=== PATIENT | female | born 1975 | race Caucasian/White ===

== ENCOUNTER → 2025-03-28 | Emergency (ER) | payer OTHER ==
[~2025-03-28] VITALS: Ht 170.2 cm; Wt 77.3 kg
[~2025-03-28] MED LIST: HYDR-3965 PO
[2025-03-28 18:04] VITALS: BP 160/109; PULSE 115; RESP 17; TEMP 97.3; O2SAT 100
[2025-03-28 19:04] LABS: MEAN PLATELET VOLUME 7.6 FL (7.4-10.4); RED CELL DISTRIBUTION WIDTH 14.4 % (11.5-14.5)
[2025-03-28 19:25] LABS: CREATININE 0.74 MG/DL (0.40-0.90); TOTAL CARBON DIOXIDE 32.2 MMOL/L (24-32); eCRCL 87 ML/MIN; eGFR 83 ML/MIN
[2025-03-28 19:53] LABS: LEUKOCYTE ESTERASE ,URINE NEGATIVE (Neg); NITRITES, URINE NEGATIVE (Neg); OCCULT BLOOD,URINE SMALL (Neg)
[2025-03-28 19:54] LABS: UA COLLECTION TYPE CLN CATCH MIDSTREAM
[2025-03-28 19:58] LABS: SQUAMOUS EPITHELIAL CELL,UR FEW /LPF (FEW)
--- NOTE | 2025-03-28 22:35 | Physician Documentation ---
History of Present Illness Chief Complaint: Abdominal Pain w/vomiting Stated Complaint: ABD PAIN Primary Medical Doctor: Mick Ramey [facility] HPI This is a 50-year-old female who presents with three days of nausea, vomiting, and abdominal pain described as bloating. Patient reports black stools however also reports black stools began after taking Pepto-Bismol. Patient reports no other acute symptoms or concerns. Medication Reconciliation Allergies: Coded Allergies: No Known Allergies (Unverified , 08/22/09) Scheduled PRN Hydrocodone Bit/Acetaminophen 5/325 MG ([place] 5/325 MG), 1 TAB PO Q4H PRN for moderate or severe pain Past Medical History Past Medical History: MRSA Abscess Past Surgical History: appendectomy Alcohol Use: Occasionally Drug Use: marijuana, methamphetamine Lives with: Family Lives In: Home Occupation: employed Review of Systems ROS As stated above in the HPI, otherwise all systems are reviewed and negative. Physical Exam Vital Signs: Temperature: 97.3, Source: Temporal, Heart Rate: 115, Respiratory Rate: 17, BP: 160/109, Pulse Oximetry: 100, Weight: 77.270 Oxygen Flow Rate: 0 Physical Exam VITALS: Reviewed and as above. GENERAL: Alert, nontoxic appearing, no apparent distress. RESPIRATORY: No increased work of breathing, no respiratory distress, speaking in full clear sentences Progress Results/Orders Results/Orders Completed Orders - SRIDEVI HUNTLEY [employer] Cbc/Diff (03/28/25 18:10) BMP (03/28/25 18:10) Lipase (03/28/25 18:10) CMP (03/28/25 18:10) Ua W/Microscopic, Cult If Ind (03/28/25 18:05) Vital Signs 03/28/25 18:04 Temp 97.3 Pulse 115 Resp 17 B/P (MAP) 160/109 Pulse Ox 100 O2 Flow Rate 0 Laboratory Tests Test 03/28/25 18:05 03/28/25 18:34 Urine Specimen Description Cln catch midstream Urine Color Yellow Urine Clarity Clear Urine pH 6.0 Urine Specific [place] 1.025 Urine Protein Negative Urine Glucose (UA) Negative Urine Ketones Trace H Urine Occult Blood Small Urine Nitrite Negative Urine Bilirubin Small Urine Urobilinogen 0.2 Urine Leukocyte Esterase Negative Urine RBC 0-2 Urine WBC 0-4 Urine Squamous Epithelial Cells Few Urine Bacteria Few Urine Culture Indicated Not ind Volume Urine Centrifuged 10 ml Urine Comment White Blood Count 5.2 Red Blood Count 4.44 Hemoglobin 14.1 Hematocrit 41.5 Mean Corpuscular Volume 93.4 Mean Corpuscular Hemoglobin 31.8 H Mean Corpuscular Hemoglobin Concent 34.0 Red Cell Distribution Width 14.4 Platelet Count 238 Mean Platelet Volume 7.6 Neutrophils (%) (Auto) 61.6 Lymphocytes (%) (Auto) 27.0 Monocytes (%) (Auto) 9.0 Eosinophils (%) (Auto) 1.6 Basophils (%) (Auto) 0.8 Neutrophils # (Auto) 3.2 Lymphocytes # (Auto) 1.4 Monocytes # (Auto) 0.5 Eosinophils # (Auto) 0.1 Basophils # (Auto) 0.0 CBC Comment Sodium Level 143 Potassium Level 3.8 Chloride Level 102 Carbon Dioxide Level 32.2 H Anion Gap 9 Blood Urea Nitrogen 18 Creatinine 0.74 Estimated GFR/1.73 m2 83 BUN/Creatinine Ratio 24.3 H Glucose Level 98 Calcium Level 9.0 Total Bilirubin 0.8 Aspartate Amino Transf (AST/SGOT) 17 Alanine Aminotransferase (ALT/SGPT) 26 Alkaline Phosphatase 116 Total Protein 7.5 Albumin 4.0 Globulin 3.5 Albumin/Globulin Ratio 1.1 Lipase 42 Chemistry Comments Medical Decision Making Findings This otherwise well appearing 50-year-old female presented with three days of nausea, vomiting, and abdominal pain described as generalized bloating. Patient did report history of black stools however reported black stools began after taking Pepto-Bismol. Patient is hemodynamically stable. MSE performed in triage and patient returned to ED lobby by nursing staff to await available ED room, lab work initiated. Patient appears to have eloped from lobby. Differential Dx:Considerations: Include: AAA, Aortic dissection, Appendicitis, Bowel obstruction, Cholangitis, Cholelithasis, Constipation, Diverticular disease, Esophageal rupture, Esophagitis, Gastritis/PUD, Gastroenteritis, GI hemorrhage, Hernia, Inflammatory BD, Ischemic bowel, Ovarian cyst/torsion, Pancreatitis, PID, Trauma, intraabdominal, Urinary obstruction, Urinary tract infection, Urolithiasis Departure Disposition: LEFT AWOL/ELOPED Impression: Primary Impression: Abdominal pain Qualified Codes: R10.84 - Generalized abdominal pain Referrals: NO PRIMARY CARE PROVIDER (PCP) Signature Scribe Signature: No scribe Attestation: The note accurately reflects work and decisions made by me.CYNDY Altamirano 03/28/25 22:34 SRIDEVI HUNTLEY Mar 28, 2025 22:34
== END | disposition home or self-care (01) ==
LOC: ER 17:56
DX: R10.9 Unspecified abdominal pain (principal); F12.90 Cannabis use, unspecified, uncomplicated; F15.90 Other stimulant use, unspecified, uncomplicated; Z90.49 Acquired absence of other specified parts of digestive tract; Z86.14 Personal history of Methicillin resistant Staphylococcus aureus infection; Z72.89 Other problems related to lifestyle
CPT/HCPCS: 36415; 80053; 81001; 83690; 85025; 99283